=== PATIENT | female | born 1965 | race Caucasian/White ===

== ENCOUNTER → 2018-01-02 | Outpatient (CLI) | payer OTHER ==
[~2018-01-02] MED LIST: ACET-2031 PO; ALB6.7R INH; BUDE10.2 INH; FLUT16SP19 NS; IBUP-56 PO
== END ==
LOC: LAB 15:53
PROVIDERS: ATTEND Otolaryngology
DX: J32.0 Chronic maxillary sinusitis (principal); J30.1 Allergic rhinitis due to pollen
CPT/HCPCS: 36415; 82306; 82784; 82785; 82787